=== PATIENT | male | born 1975 | race African-American/Black ===

== ENCOUNTER 2016-06-14 14:36 | Emergency (ER) | payer OTHER ==
[~2016-06-14 14:36] MED LIST: KEFLEX500 MG PO; VICODIN 5/1 TAB 5/50 PO
== END 2016-06-14 14:37 | disposition home or self-care (01) ==
LOC: CFTX 14:36
DX: L02.31 Cutaneous abscess of buttock (principal); F17.210 Nicotine dependence, cigarettes, uncomplicated; Z98.890 Other specified postprocedural states
CPT/HCPCS: 10060; 87070; 87077; 87186; 87205; 99283

== ENCOUNTER 2016-06-16 10:08 | Emergency (ER) | payer OTHER | END 2016-06-16 11:19 | disposition home or self-care (01) | LOC: CFTX 10:08 | DX: L02.31 Cutaneous abscess of buttock (principal); F17.210 Nicotine dependence, cigarettes, uncomplicated; J45.909 Unspecified asthma, uncomplicated | CPT/HCPCS: 10061; 99283 ==

== ENCOUNTER 2016-06-18 15:11 | Emergency (ER) | payer OTHER | END 2016-06-18 16:06 | disposition home or self-care (01) | LOC: CFTX 15:11 | DX: Z48.01 Encounter for change or removal of surgical wound dressing (principal); F17.210 Nicotine dependence, cigarettes, uncomplicated | CPT/HCPCS: 99281 ==

== ENCOUNTER 2016-07-04 23:50 | Emergency (ER) | payer OTHER ==
--- NOTE | ~2016-07-04 | CR181 ---
[facility] A Service of [facility] & [facility] RADIOLOGY TEXT RESULTS PATIENT: MESFIN DHILLON LOCATION: [facility] : 71 UNIT #: [id number] AGE: [address]: Sonia Vences MD SEX: M ORDER DR: [id number] [facility] [address] [place], [place] [address] [id number] E MR#: [id number] Acc #: [id number] NAME: MESFIN DHILLON : 1975 SEX: M STUDY DATE/TIME: 07/05/2016 0:41 UNIT: [facility] ROOM: STUDY DESCRIPTION: CR Lumbar Spine 2 or 3 Views Attending Physician: Sonia Vences M.D. Ordering Physician: Sonia Vences M.D. Primary Care Physician: Primary Care Physician No MEDICAL IMAGING REPORT This report is preliminary unless electronic signature is present EXAM Lumbar spine, 07/05/2016 HISTORY 40-year-old male with back pain and left leg pain for 1 week. No specific injury. COMPARISON None FINDINGS 3 views of the lumbar spine demonstrate no acute fracture or subluxation. Vertebral body heights and alignment are normal. Disc spaces and facets are unremarkable. Sacrum and SI joints intact. IMPRESSION Unremarkable lumbar spine. Dictated by... Edgar Shah M.D. THIS IS AN ELECTRONICALLY VERIFIED REPORT Edgar Shah M.D. at 07/05/2016 11:28 PM BENI/leonel TD: 07/05/2016 13:33 JOB #: [id number] MEDICAL IMAGING REPORT Page 1 of 1 COPY
== END 2016-07-05 01:35 | disposition home or self-care (01) ==
LOC: CED 23:50
DX: M54.42 Lumbago with sciatica, left side (principal); J45.909 Unspecified asthma, uncomplicated; F17.200 Nicotine dependence, unspecified, uncomplicated
CPT/HCPCS: 72100; 99283

== ENCOUNTER 2016-08-20 16:41 | Emergency (ER) | payer BC | END 2016-08-20 18:10 | disposition home or self-care (01) | LOC: CFTX 16:41 → CED 16:41 → CFTX 17:32 | DX: L02.31 Cutaneous abscess of buttock (principal); J45.909 Unspecified asthma, uncomplicated; F17.210 Nicotine dependence, cigarettes, uncomplicated; Z86.14 Personal history of Methicillin resistant Staphylococcus aureus infection | CPT/HCPCS: 10060; 96372; 99283; J1885 ==